=== PATIENT | male | born 1960 | race Two or more races ===

== ENCOUNTER → 2017-05-21 | Outpatient (CLI) | payer MEDICAID ==
[2017-05-21 09:30] LABS: CH 30.5; CHCM 34.7; HCT 45.5 % (39.0-53.0); HDW 2.61; HGB 15.9 gm/dL (13.0-17.5); MCH 30.8 pg (25.0-35.0); MCHC 34.9 g/dL (31.0-37.0); MCV 88.3 fL (80.0-100.0); Mean Platelet Volume 8.1; RBC 5.15 m/uL (4.30-5.90); RDW 13.2 % (11.5-15.5); WBC 6.6 k/uL (3.8-10.6)
[2017-05-21 10:22] LABS: ALT 46 U/L (21-72); AST 23 U/L (17-59); Alkaline Phosphatase 68 U/L (38-126); Anion Gap 12 mmol/L; Blood Urea Nitrogen 14 mg/dL (9-20); Calcium 9.7 mg/dL (8.4-10.2); Carbon Dioxide 23 mmol/L (22-30); Chloride 104 mmol/L (98-107); Cholesterol 214 mg/dL (<200); Glucose 108 mg/dL (74-99); HDL Cholesterol 47 mg/dL (40-60); Non-African American GFR(MDRD) >60 (>60 ml/min/1.73 sqM); Potassium 4.2 mmol/L (3.5-5.1); Sodium 139 mmol/L (137-145); Total Bilirubin 0.8 mg/dL (0.2-1.3); Total Protein 7.4 g/dL (6.3-8.2); Triglycerides 154 mg/dL (<150)
[2017-05-21 10:52] LABS: Prostate Specific Antigen 0.66 ng/mL (0.00-4.00)
== END | disposition home or self-care (01) ==
LOC: LABWHC1 08:43
PROVIDERS: ATTEND Family Medicine
DX: I10 Essential (primary) hypertension (principal)
CPT/HCPCS: 36415; 80053; 80061; 84153; 85027

== ENCOUNTER 2017-12-20 10:09 | Emergency (ER) | payer MEDICAID, OTHER ==
[2017-12-20 10:15] VITALS: BP 160/82; PULSE 81; RESP 16; TEMP 97.5
--- NOTE | 2017-12-20 10:34 | ED ---
General Adult HPI - General Chief complaint: Extremity Injury, Upper Stated complaint: [facility]HS-Fall, Shoulder Pain Time Seen by Provider: 12/20/17 10:24 Source: patient, RN notes reviewed Mode of arrival: ambulatory Limitations: no limitations - History of Present Illness Initial comments: 57-year-old male past medical history hypertension presents status post fall. Chief complaint of right elbow and right shoulder pain. 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 Pain in the right shoulder is more significant than his elbow pain. He has been moving the arm without much difficulty. States the pain is worse when the arm is hanging at his side. Denies any numbness or tingling. No head or neck trauma. No other injuries reported. - Related Data Home Medications Medication Instructions Recorded Confirmed Multivit-Min/FA/Lycopen/Lutein 1 tab PO DAILY 12/20/17 12/20/17 [Centrum Silver Tablet] Triamterene/Hydrochlorothiazid 1 tab PO QAM 12/20/17 12/20/17 [Triamterene-Hctz 37.5-25 mg Tb] amLODIPine [Norvasc] 5 mg PO DAILY 12/20/17 12/20/17 Previous Rx's Medication Instructions Recorded HYDROcodone/APAP 5-325MG [Sunol 1 tab PO Q6HR PRN #12 tab 12/20/17 5-325] Allergies Allergy/AdvReac Type Severity Reaction Status Date / Time NSAIDS (Non-Steroidal Allergy Unknown Verified 12/20/17 11:06 Anti-Inflamma Review of Systems ROS Statement: Those systems with pertinent positive or pertinent negative responses have been documented in the HPI. ROS Other: All systems not noted in ROS Statement are negative. Past Medical History Past Medical History: Hypertension History of Any Multi-Drug Resistant Organisms: None Reported Past Surgical History: No Surgical Hx Reported Past Psychological History: No Psychological Hx Reported Smoking Status: Current every day smoker Past Alcohol Use History: None Reported Past Drug Use History: None Reported General Exam Limitations: no limitations General appearance: alert, in no apparent distress Head exam: Present: atraumatic, normocephalic Eye exam: Present: normal appearance Neck exam: Present: normal inspection, full ROM Respiratory exam: Present: normal lung sounds bilaterally. Absent: respiratory distress Cardiovascular Exam: Present: regular rate, normal rhythm GI/Abdominal exam: Present: soft. Absent: distended, tenderness Extremities exam: Present: other (Right upper extremity: Neurovascularly intact , good research associate molecular biology strength, some tenderness on the proximal ulna, no deformity noted, no ecchymosis, there is pain with range of motion of the right shoulder, no deformity.) Neurological exam: Present: alert, oriented X3. Absent: motor sensory deficit Psychiatric exam: Present: normal affect, normal mood Skin exam: Present: warm, dry, intact. Absent: cyanosis, diaphoretic Course Vital Signs 12/20/17 10:10 Temperature 97.5 F L Pulse Rate 81 Respiratory 16 Rate Blood Pressure 160/82 O2 Sat by Pulse 99 Oximetry Medical Decision Making - Medical Decision Making 57-year-old male with right shoulder and right elbow pain status post fall. No other injury identified on history or physical exam. X-rays showed negative for any acute bony abnormality. X-ray of the elbow is negative for fracture dislocation, there is some chronic changes elbow which is reviewed with the patient. He is given a sling for comfort and prescribed pain medication. He will follow-up with primary care physician. Disposition Clinical Impression: Elbow contusion, Shoulder strain Disposition: HOME SELF-CARE Condition: Good Instructions: Elbow Sprain (ED), Contusion in Adults (ED) Prescriptions: HYDROcodone/APAP 5-325MG [Sunol 5-325] 1 tab PO Q6HR PRN #12 tab PRN Reason: Pain Referrals: America Tsai MD [Primary Care Provider] - 1-2 days Time of Disposition: 11:16
--- NOTE | 2017-12-20 11:07 | XR ---
EXAMINATION TYPE: XR elbow complete RT DATE OF EXAM: 12/20/2017 CLINICAL HISTORY: Fall injury with pain. TECHNIQUE: Frontal, lateral and oblique images of the right elbow are obtained. COMPARISON: None FINDINGS: There is no acute fracture/dislocation evident in the right elbow. No abnormal fat pad si gns are seen. There is prominent spur from posterior likely nonacute distal triceps tendon attachment . There is well corticated ossific fragmentation from the lateral epicondyle distal humerus at extens or tendon insertion, possibly calcific tendinitis or product of old trauma. Mild spurring ulnohumeral articulation is seen. Tiny spur lateral aspect radial head is noted on oblique image. Overlying soft tissue is unremarkable. IMPRESSION: There is no acute fracture or dislocation in the right elbow.
--- NOTE | 2017-12-20 11:08 | XR ---
EXAMINATION TYPE: XR shoulder complete RT DATE OF EXAM: 12/20/2017 CLINICAL HISTORY: Fall injury with pain. TECHNIQUE: Three views of the right shoulder are obtained. COMPARISON: None. FINDINGS: There is no acute fracture/dislocation evident in the right shoulder. There is moderate sp urring at acromioclavicular joint. Distal acromion morphology is unremarkable. Glenohumeral joint is maintained. The visualized ribs are intact and unremarkable. IMPRESSION: There is no acute fracture or dislocation in the right shoulder.
[2017-12-20] MEDS ORDERED: IBUPROFEN 800 MG TAB PO STA (11:19)
== END 2017-12-20 11:18 | disposition home or self-care (01) ==
LOC: EC 10:09
DX: S46.911A Strain of unspecified muscle, fascia and tendon at shoulder and upper arm level, right arm, initial encounter (principal); S50.01XA Contusion of right elbow, initial encounter; I10 Essential (primary) hypertension; F17.200 Nicotine dependence, unspecified, uncomplicated; Z79.899 Other long term (current) drug therapy; Z88.6 Allergy status to analgesic agent; W01.0XXA Fall on same level from slipping, tripping and stumbling without subsequent striking against object, initial encounter; Y92.89 Other specified places as the place of occurrence of the external cause; Y99.0 Civilian activity done for income or pay
CPT/HCPCS: 99283

== ENCOUNTER → 2019-06-18 | Outpatient (CLI) | payer MEDICAID ==
[2019-06-18 19:29] LABS: African American GFR (CKD) 96.4 (60.0-200.0); Albumin 4.7 g/dL (3.80-4.90); Albumin/Globulin Ratio 2.24 (1.60-3.17); Anion Gap 10.8 mmol/L (4.00-12.00); Calcium 9.1 mg/dL (8.7-10.3); Carbon Dioxide 24.2 mmol/L (21.6-31.8); Globulin 2.1 g/dL (1.6-3.3); LDL Cholesterol,Calculated 125.6 mg/dL (0.0-131.0); Potassium 3.9 mmol/L (3.5-5.5); Total Bilirubin 0.5 mg/dL (0.3-1.2); Total Protein 6.8 g/dL (6.2-8.2); VLDL Calculation 31.4 mg/dL (5.00-40.00)
== END | disposition home or self-care (01) ==
LOC: LABWHC1 12:37
PROVIDERS: ATTEND Family Medicine
DX: Z00.00 Encounter for general adult medical examination without abnormal findings (principal); I10 Essential (primary) hypertension
CPT/HCPCS: 36415; 80053; 80061; 84153

== ENCOUNTER → 2020-09-03 | Outpatient (CLI) | payer MEDICAID ==
[2020-09-03 08:33] LABS: HCT 44.9 % (39.0-53.0); HGB 15.2 gm/dL (13.0-17.5); MCH 29.4 pg (25.0-35.0); MCHC 33.8 g/dL (31.0-37.0); Mean Platelet Volume 8.2; Platelet Count 194 k/uL (150-450); RBC 5.16 m/uL (4.30-5.90); WBC 5.9 k/uL (3.8-10.6)
[2020-09-03 11:20] LABS: African American GFR (CKD) 85.3 (60.0-200.0); Albumin 4.5 g/dL (3.80-4.90); Albumin/Globulin Ratio 1.88 (1.60-3.17); Anion Gap 9.6 mmol/L (4.00-12.00); BUN/Creat Ratio 13.64 Ratio (12.00-20.00); Calcium 9.3 mg/dL (8.7-10.3); Carbon Dioxide 23.4 mmol/L (21.6-31.8); Chol/HDL Ratio 4.76; Globulin 2.4 g/dL (1.6-3.3); LDL Cholesterol,Calculated 136.8 mg/dL (0.0-131.0); Non-African American GFR(CKD) 73.6 (60.0-200.0); Potassium 4.1 mmol/L (3.5-5.5); Total Bilirubin 0.5 mg/dL (0.2-1.2); Total Protein 6.9 g/dL (6.2-8.2); VLDL Calculation 32.2 mg/dL (5.00-40.00)
[2020-09-03 11:28] LABS: Prostate Specific Antigen 0.4 ng/mL (0.0-3.5)
== END | disposition home or self-care (01) ==
LOC: LABWHC1 07:42
PROVIDERS: ATTEND Family Medicine
DX: Z00.00 Encounter for general adult medical examination without abnormal findings (principal); I10 Essential (primary) hypertension
CPT/HCPCS: 36415; 80053; 80061; 84153; 85027

== ENCOUNTER → 2021-06-23 | Outpatient (CLI) | payer MEDICAID ==
[2021-06-23 15:40] LABS: Basophils # (A) 0.07 X 10*3/uL (0.00-0.10); Basophils % (A) 1.3 %; Eosinophils # (A) 0.15 X 10*3/uL (0.04-0.35); Eosinophils % (A) 2.8 %; HCT 43.8 % (39.6-50.0); HGB 14.6 g/dL (13.0-17.0); Lymphocytes # (A) 1.87 X 10*3/uL (0.90-5.00); MCH 28.3 pg (27.0-32.0); MCHC 33.3 g/dL (32.0-37.0); MCV 84.9 fL (80.0-97.0); Mean Platelet Volume 10.8 fL (9.5-12.2); Monocytes # (A) 0.58 X 10*3/uL (0.20-1.00); Monocytes % (A) 10.9 %; Neutrophils # (A) 2.66 X 10*3/uL (1.80-7.70); Neutrophils % (A) 49.8 %; Platelet Count 227 X 10*3/uL (140-440); RBC 5.16 X 10*6/uL (4.40-5.60); RDW 13.2 % (11.5-14.5); WBC 5.34 X 10*3/uL (4.50-10.00)
[2021-06-24 02:32] LABS: African American GFR (CKD) 84.7 (60.0-200.0); Albumin 4.7 g/dL (3.80-4.90); Albumin/Globulin Ratio 1.81 (1.60-3.17); Anion Gap 14.2 mmol/L (4.00-12.00); BUN/Creat Ratio 13.64 Ratio (12.00-20.00); Calcium 9.2 mg/dL (8.7-10.3); Carbon Dioxide 21.8 mmol/L (21.6-31.8); Chol/HDL Ratio 5.6; Globulin 2.6 g/dL (1.6-3.3); LDL Cholesterol,Calculated 139.8 mg/dL (0.0-131.0); Non-African American GFR(CKD) 73.1 (60.0-200.0); Potassium 3.9 mmol/L (3.5-5.5); Total Bilirubin 0.7 mg/dL (0.3-1.2); Total Protein 7.3 g/dL (6.2-8.2); VLDL Calculation 44.2 mg/dL (5.00-40.00)
[2021-06-24 02:38] LABS: PSA Annual Screen 0.5 ng/mL (0.0-4.0)
== END | disposition home or self-care (01) ==
LOC: LABWHC1 09:31
PROVIDERS: ATTEND Family Medicine
DX: Z00.00 Encounter for general adult medical examination without abnormal findings (principal)
CPT/HCPCS: 80061; 80053; 84443; 85025; 36415; G0103

== ENCOUNTER → 2021-12-22 | Outpatient (CLI) | payer MEDICAID ==
[2021-12-22 11:37] LABS: ALT 21 U/L (10-49); AST 16 U/L (14-35); African American GFR (CKD) 81.1 (60.0-200.0); Albumin 4.4 g/dL (3.8-4.9); Albumin/Globulin Ratio 1.55 (1.60-3.17); Alkaline Phosphatase 68 U/L (41-126); BUN/Creat Ratio 11.93 Ratio (12.00-20.00); Blood Urea Nitrogen 13.6 mg/dL (9.0-27.0); Calcium 9.4 mg/dL (8.7-10.3); Carbon Dioxide 22.3 mmol/L (20.0-27.5); Chloride 100 mmol/L (96-109); Chol/HDL Ratio 5.56 Ratio; Globulin 2.9 g/dL (1.6-3.3); Glucose 114 mg/dL (70-110); LDL Cholesterol,Calculated 157.9 mg/dL (0.0-131.0); Potassium 3.9 mmol/L (3.5-5.5); Sodium 136 mmol/L (135-145); Total Protein 7.3 g/dL (6.2-8.2)
== END | disposition home or self-care (01) ==
LOC: LABWHC1 07:10
PROVIDERS: ATTEND Family Medicine
DX: I10 Essential (primary) hypertension (principal)
CPT/HCPCS: 36415; 80053; 80061; 83036

== ENCOUNTER → 2022-08-04 | Outpatient (CLI) | payer MEDICAID ==
--- NOTE | 2022-08-04 19:16 | CT ---
EXAMINATION TYPE: CT heart w calcium score DATE OF EXAM: 08/04/2022 COMPARISON: HISTORY: Screening for cardiovascular disorder. 213.9 CT DLP: 123.40 mGycm Automated exposure control for dose reduction was used. CT CALCIUM SCORING Coronary calcium is a marker for plaque (fatty deposits) in a blood vessel or atherosclerosis (harden ing of the arteries). The presence and amount of calcium detected in a coronary artery by the CT sca n, indicates the presence and amount of atherosclerotic plaque. These calcium deposits appear years before the development of heart disease symptoms such as chest pain and shortness of breath. A calcium score is computed for each of the coronary arteries based upon the volume and density of th e calcium deposits. This can be referred to as your calcified plaque burden. It does not correspond directly to the percentage of narrowing in the artery but does correlate with the severity of the un derlying coronary atherosclerosis. PROCEDURE TECHNIQUE - Prospective Gating was used. Slice thickness: 3mm. Density threshold (HU): 130, Pixel threshold: 3, Algorithm: discrete. RESULTS Region: LM Calcium Score (Agatston): 266.31 Volume (mm3): 204.29 Mass (g): 68.1 Region: RCA Calcium Score (Agatston): 0 Volume (mm3): 0 Mass (g): 0 Region: LAD Calcium Score (Agatston): 0 Volume (mm3): 0 Mass (g): 0 Region: CX Calcium Score (Agatston): 0 Volume (mm3): 0 Mass (g): 0 Region: PDA Calcium Score (Agatston): 0 Volume (mm3): 0 Mass (g): 0 Total: Calcium Score (Agatston): 266.31 Volume (mm3): 204.29 Mass (g): 68.1 TOTAL CALCIUM SCORE: 266.31 IMPRESSION: Calcium Score: 0 Implication: No identifiable plaque. Risk of Coronary Artery Disease: very Low generally less than 5% CALCIUM SCORE IMPLICATION RISK OF C ORONARY ARTERY DISEASE 0 No identifiable plaque Very low, generally less than 5% 1-10 Minimal identifiable plaque Very unlikely, less than 10% 11-100 Definite, at least mild atherosclerotic plaque Mild or m inimal coronary narrowings likely 101-400 Definite, at least moderate atherosclerotic plaque Mild coronary ar arnulfo disease highly likely, significant narrowing possible 401 or Higher Extensive atherosclerotic plaque High lik elihood of at least one significant coronary narrowing
== END | disposition home or self-care (01) ==
LOC: RADCTMAIN 14:58
PROVIDERS: ATTEND Family Medicine
DX: Z13.6 Encounter for screening for cardiovascular disorders (principal); I25.10 Atherosclerotic heart disease of native coronary artery without angina pectoris
CPT/HCPCS: 75571

== ENCOUNTER → 2022-08-24 | Outpatient (CLI) | payer MEDICAID ==
--- NOTE | 2022-08-24 18:59 | CT ---
EXAMINATION TYPE: CT angio chest DATE OF EXAM: 08/24/2022 COMPARISON: Calcium score CT August 04, 2022 HISTORY: h/o calcium score in LM. Abnormal CT. CT DLP: 922 mGycm. Automated Exposure Control for Dose Reduction was Utilized. CONTRAST: CTA scan of the thorax is performed without and with IV Contrast, patient injected with 100 mL of Iso randy 370, aneurysm protocol. 3D reconstructed images are created on an independent workstation and rev iewed. FINDINGS: LUNGS: Mild to moderate underlying emphysematous changes are present. There is mild to moderate linea r atelectasis or scarring in the periphery of the lower lungs bilaterally. No pleural effusion or pne umothorax seen. No focal consolidation. No concerning nodules or masses MEDIASTINUM: There is satisfactory enhancement of the Central pulmonary arteries. No area of nonenhan cing contrast to suggest intramural hematoma. Normal 3 vessel origins from the aortic arch without pl aque or stenosis. No linear hypodensity to suggest dissection. No Thoracic aortic aneurysm. There are no greater than 1 cm hilar or mediastinal lymph nodes. No cardiomegaly or pericardial effusion is seen. Prominent calcification in the small length left main extends into the proximal LAD correlates with recent calcium scoring CT but this is putting all calcium in the left main where more than half calcified plaque is in the proximal LAD. OTHER: Asymmetric nodular fullness to the left adrenal gland favors benign etiology. There is partial ly exophytic 3.1 cm thin-walled cyst posteriorly upper pole right kidney. IMPRESSION: Mild to moderate underlying emphysematous change greatest upper lungs with mild to modera te peripheral linear scarring and atelectasis in the lower lungs. No suspicious acute pulmonary proce ss. No thoracic aortic aneurysm or dissection noted.
== END | disposition home or self-care (01) ==
LOC: RADCTMAIN 15:30
PROVIDERS: ATTEND Family Medicine
DX: J43.9 Emphysema, unspecified (principal); J98.11 Atelectasis; J98.4 Other disorders of lung; E78.00 Pure hypercholesterolemia, unspecified
CPT/HCPCS: 71275; Q9967

== ENCOUNTER → 2022-09-28 | Outpatient (CLI) | payer MEDICAID ==
--- NOTE | 2022-10-11 07:28 | US ---
EXAMINATION TYPE: US arterial LE multi level DATE OF EXAM: 09/28/2022 8:25 AM CLINICAL HISTORY: I25.10 pad. History of hypertension and hyperlipidemia. Doppler Waveforms: Right: Monophasic in dorsalis pedis. Triphasic throughout remainder. Left: Monophasic in dorsalis pedis. Triphasic throughout remainder. Ankle-Brachial Indices: Right: 0.83 Left: 0.82 Toe Brachial Indices: Right: 0.64 Left: N/C IMPRESSION: Normal ANGELA values. Loss of phasicity bilateral dorsalis pedis, significant stenosis at t his level cannot be excluded. Further workup and follow-up should be considered.
== END | disposition home or self-care (01) ==
LOC: RADUSWWP 07:01
PROVIDERS: ATTEND Internal Medicine Interventional Cardiology
DX: I25.10 Atherosclerotic heart disease of native coronary artery without angina pectoris (principal)
CPT/HCPCS: 93923

== ENCOUNTER → 2022-10-17 | Outpatient (CLI) | payer MEDICAID ==
--- NOTE | 2022-10-17 16:05 | CA ---
Transthoracic Echo Report Name: Kit Kirkland Age: 62 Gender: M : 1960 Exam Date: 10/17/2022 14:03 Exam Location: [facility] Ht (in): 71 Wt (lb): 220 Ordering Physician: Mickey Corral MD ([id number]) Attending/Referring Phys: Bakery Assistant Sharda Redmond RDCS Procedure CPT: Indications: 125.10 ASHD Cardiac Hx: Technical Quality: Fair Contrast 1: Total Dose (mL): Contrast 2: Total Dose (mL): MEASUREMENTS (Male / Female) Normal Values 2D ECHO LV Diastolic Diameter PLAX 4.6 cm 4.2 - 5.9 / 3.9 - 5.3 cm LV Systolic Diameter PLAX 2.8 cm IVS Diastolic Thickness 1.5 cm 0.6 - 1.0 / 0.6 - 0.9 cm LVPW Diastolic Thickness 1.3 cm 0.6 - 1.0 / 0.6 - 0.9 cm LV Relative Wall Thickness 0.6 RV Internal Dim ED PLAX 2.7 cm LA Volume 40.4 cm??? 18 - 58 / 22 - 52 cm??? M-MODE Aortic Root Diameter MM 3.0 cm LA Systolic Diameter MM 4.1 cm LA Ao Ratio MM 1.4 AV Cusp Separation MM 1.9 cm DOPPLER AV Peak Velocity 137.5 cm/s AV Peak Gradient 7.6 mmHg AV Mean Velocity 101.4 cm/s AV Mean Gradient 4.4 mmHg AV Velocity Time Integral 26.2 cm LVOT Peak Velocity 105.3 cm/s LVOT Peak Gradient 4.4 mmHg LVOT Velocity Time Integral 20.1 cm MV Area PHT 3.0 cm??? Mitral E Point Velocity 72.1 cm/s Mitral A Point Velocity 59.5 cm/s Mitral E to A Ratio 1.2 MV Deceleration Time 253.2 ms MV E' Velocity 11.3 cm/s Mitral E to MV E' Ratio 6.4 TR Peak Velocity 189.6 cm/s TR Peak Gradient 14.4 mmHg Right Ventricular Systolic Press 19.4 mmHg FINDINGS Left Ventricle Moderately increased left ventricular wall thickness. Normal left ventricular systolic function with no obvious regional wall motion abnormalities. Left ventricular ejection fraction is estimated at 55-60 %. Normal left ventricular diastolic filling pattern. Right Ventricle Normal right ventricular size and function. Right ventricular systolic pressure within normal limits. Right Atrium Normal right atrial size. Left Atrium Normal left atrial size. Mitral Valve Structurally normal mitral valve. No evidence for mitral valve prolapse. No mitral stenosis. Mild mitral regurgitation. Aortic Valve Trileaflet aortic valve. No aortic valve stenosis or regurgitation. Tricuspid Valve Structurally normal tricuspid valve. Mild tricuspid regurgitation. Pulmonic Valve Trace pulmonic regurgitation. Pericardium No pericardial effusion. Aorta Normal size aortic root and proximal ascending aorta. CONCLUSIONS LVH with preserved systolic function Previewed by: Dr. Carlos Bolivar MD (Electronically Signed) Final Date: 17 October 2022 16:04
== END | disposition home or self-care (01) ==
LOC: RADECHMAIN 13:59
PROVIDERS: ATTEND Internal Medicine Interventional Cardiology
DX: I25.10 Atherosclerotic heart disease of native coronary artery without angina pectoris (principal)
CPT/HCPCS: 93306

== ENCOUNTER 2022-10-27 06:11 | Day surgery (SDC) | payer MEDICAID ==
[2022-10-27] MEDS: SODIUM CHLORIDE 0.9% 1,000 ML in EMPTY BAG 1 BAG IV SCH ×2 (06:07→06:24)
[~2022-10-27 06:11] MED LIST: ALPRAZolam 0.25 MG TAB PO PRN; ALPRAZolam 0.5 MG TAB PO PRN; ASPIRIN 325 MG TAB PO STA; ATORVASTATIN 80 MG TAB PO STA; NITROGLYCERIN SL TABS 0.4 MG TAB SUBLINGUAL PRN
[2022-10-27 07:24] LABS: Basophils # (A) 0.1 k/uL (0-0.2); Basophils % (A) 1 %; Eosinophils # (A) 0.2 k/uL (0-0.7); Eosinophils % (A) 4 %; HCT 43.2 % (39.0-53.0); HGB 15.3 gm/dL (13.0-17.5); Lymphocytes # (A) 1.3 k/uL (1.0-4.8); Lymphocytes % (A) 23 %; MCH 29.6 pg (25.0-35.0); MCHC 35.5 g/dL (31.0-37.0); MCV 83.2 fL (80.0-100.0); Mean Platelet Volume 8.8; Monocytes # (A) 0.4 k/uL (0-1.0); Monocytes % (A) 7 %; Neutrophils # (A) 3.6 k/uL (1.3-7.7); Neutrophils % (A) 63 %; Platelet Count 198 k/uL (150-450); RBC 5.19 m/uL (4.30-5.90); RDW 12.9 % (11.5-15.5); WBC 5.8 k/uL (3.8-10.6)
[2022-10-27] MEDS ORDERED: VERAPAMIL 2.5 MG/ML 2 ML AMP ONE (07:28)
[2022-10-27 07:30] VITALS: RESP 16; TEMP 98.4
[2022-10-27] MEDS ORDERED: HEPARIN SODIUM 1,000 UN/ML (10ML VL) ONE (07:38)
[2022-10-27] MEDS ORDERED: LIDOCAINE 1% INJ 10MG/ML (5 ML VIAL-PF) SQ ONE (07:52)
[2022-10-27] MEDS: fentaNYL (PF) 50 MCG/ML 2 ML AMP IV ONE ×2 (07:52→07:58)
[2022-10-27] MEDS ORDERED: MIDAZOLAM 2 MG/2 ML VIAL IV ONE ×2 (07:52→07:58)
[2022-10-27] MEDS ORDERED: VERAPAMIL SYRINGE (5 MG/10 ML) INTRAARTER ONE (07:55)
[2022-10-27] MEDS ORDERED: HEPARIN SODIUM 1,000 UN/ML (10ML VL) IV ONE (07:56)
[2022-10-27] MEDS ORDERED: IOPAMIDOL-370 125ML BTL INJ ONE (08:00)
[2022-10-27] MEDS ORDERED: fentaNYL (PF) 50 MCG/ML 2 ML AMP ONE (08:08)
[2022-10-27 08:11] LABS: Calcium 8.7 mg/dL (8.4-10.2); Potassium 3.9 mmol/L (3.5-5.1)
[2022-10-27] MEDS ORDERED: RX INFO: IV CONTRAST WAS GIVEN 1 EACH MISC MISCELLANE PRN (08:13)
[2022-10-27] MEDS ORDERED: SODIUM CHLORIDE 0.9% 1,000 ML IV SCH (08:15)
--- NOTE | 2022-10-27 08:17 | P.PCN ---
Date of Procedure: 10/27/22 Operative Findings: CARDIAC CATHETERIZATION PERFORMING PHYSICIAN: Mickey Corral MD, RPVI PROCEDURE PERFORMED: 1. Selective right and left coronary angiogram 2. Left heart catheterization INDICATION: The patient is a 62-year-old gentleman with a past medical history significant for hypertension and dyslipidemia and significant family history of CAD and had initially CT calcium score came in to be abnormal. Subsequently he underwent a coronary CTA and that revealed a plaque involving the left main appears to be in the range of 50%. He was brought today for further clarification and heart catheterization. COMPLICATION: None APPROACH: Right radial artery LEVEL OF SEDATION: Moderate with a sedation length of 10 minutes PROCEDURE DESCRIPTION: After obtaining an informed consent, the patient was brought to cardiac medical lab tech instructor. Local anesthesia was performed using lidocaine subcutaneously. The right radial artery was cannulated using Seldinger technique, the guidewire passed easily, following that we advanced a 5-[place] sheath dilator assembly, the wire and dilator were removed and sheath was flushed. Following that, 2 mg of verapamil along with 5000 unit heparin were given. Selective right and left coronary angiogram using a 6-[place] JR4 and JL 3.5 catheters. Following that we did left heart catheterization using 6-[place] pigtail catheter. The procedure was completed there was no complication. SELECTIVE CORONARY ANGIOGRAM: The right coronary artery: Large caliber vessel and a dominant vessel. The RCA has mild disease only. Distally bifurcates into PDA and PLV branches both appeared to be angiographically normal. Left main: The left main has disease appears to be in the range of 30%. Bifurcates into an LCx and LAD The left circumflex: Arch caliber vessel codominant vessel. The ostial LCx and ostial OM1 has a lesion appeared to be in the range of 50%. Otherwise the left circumflex system appears to be angiographically normal. The circumflex gives PDA branch. The left anterior descending artery: The ostial LAD has a lesion appeared to be in the range of 40-50%. The mid and distal LAD appears to have mild disease only. The LAD gives rises into a diagon al branch which has intermediate disease only. HEMODYNAMICS: The LVEDP was 8 mmHg was no significant gradient across aortic valve CONCLUSION: 1. Mild to moderate nonobstructive coronary artery disease 2. Normal left sided filling pressure POSTPROCEDURE MANAGEMENT: At this point I would advise aggressive cholesterol control and risk factors modification and no need for revascularization.
[2022-10-27 11:59] VITALS: BP 130/75; PULSE 65
[2022-10-28] MEDS ORDERED: HEPARIN SODIUM,PORCINE 2,500 UNIT in SODIUM CHLORIDE 0.9% 250 ML IRRIGATION PRN (07:00)
[2022-10-28] MEDS ORDERED: HEPARIN SODIUM,PORCINE 10,000 UNIT in SODIUM CHLORIDE 0.9% 1,000 ML IRRIGATION PRN (07:00)
== END 2022-10-27 12:10 | disposition home or self-care (01) ==
LOC: CATHCVL 06:11
PROVIDERS: ATTEND Internal Medicine Interventional Cardiology
DX: I25.10 Atherosclerotic heart disease of native coronary artery without angina pectoris (principal); I10 Essential (primary) hypertension; E78.5 Hyperlipidemia, unspecified; F17.210 Nicotine dependence, cigarettes, uncomplicated; Z82.49 Family history of ischemic heart disease and other diseases of the circulatory system; Z79.899 Other long term (current) drug therapy
CPT/HCPCS: 93458; 80048; 85025; C1769; C1894; J2250; J2001; J3010; J1644; Q9967

== ENCOUNTER → 2022-11-09 | Outpatient (CLI) | payer MEDICAID ==
--- NOTE | 2022-11-10 06:49 | US ---
EXAMINATION TYPE: US carotid duplex BILAT DATE OF EXAM: 11/09/2022 COMPARISON: NONE CLINICAL HISTORY: G54.1 CAROTID ARTERY SYNDROME. CAD. HTN - on meds. TECHNIQUE: Carotid duplex ultrasound examination. Indirect Doppler criteria was utilized. FINDINGS: EXAM MEASUREMENTS: RIGHT: Peak Systolic Velocity (PSV) cm/sec ----- Right CCA: 88.6 ----- Right ICA: 305.8 ----- Right ECA: 153.0 ICA/CCA ratio: 3.5 RIGHT: End Diastole cm/sec ----- Right CCA: 19.3 ----- Right ICA: 128.0 ----- Right ECA: 32.7 LEFT: Peak Systolic Velocity (PSV) cm/sec ----- Left CCA: 83.1 ----- Left ICA: 216.3 ----- Left ECA: 149.6 ICA/CCA ratio: 2.6 LEFT: End Diastole cm/sec ----- Left CCA: 24.8 ----- Left ICA: 77.3 ----- Left ECA: 31.7 VERTEBRALS (direction of flow): Right Vertebral: Antegrade Left Vertebral: Antegrade Rhythm: Normal COMPLAINT EVALUATION SUPERVISOR NOTES: Elevated velocities seen and significant stenosis. Plaque visualized bilaterally in bulb extending into ICA. IMPRESSION: 1. Greater than 70% stenosis at the origin of the right internal carotid artery. 2. 50-69% stenosis at the origin of the left internal carotid artery. Criteria for Assigning % of Stenosis / Diameter reduction (Estimation based on the indirect measurements of the internal carotid artery velocities (ICA PSV). 1. Normal (no stenosis)=ICA PSV < 125 cm/s: ratio < 2.0: ICA EDV<40 cm/s. 2. Less than 50% stenosis=ICA PSV < 125 cm/s: ratio < 2.0: ICA EDV<40 cm/s. 3. 50 to 69% stenosis=ICA PSV of 125 to 230 cm/s: ration 2.0 ? 4.0: ICA EDV 40-100 cm/s. 4. Greater than 70% stenosis to near occlusion= ICA PSV > 230 cm/s: ratio > 4.0: ICA EDV > 100 cm/s. 5. Near occlusion= ICA PSV velocities may be low or undetectable: variable ratio and ICA EDV. 6. Total occlusion=unable to detect flow.
== END | disposition home or self-care (01) ==
LOC: RADUSWWP 15:27
PROVIDERS: ATTEND Internal Medicine Interventional Cardiology
DX: I65.23 Occlusion and stenosis of bilateral carotid arteries (principal); I10 Essential (primary) hypertension; I25.10 Atherosclerotic heart disease of native coronary artery without angina pectoris
CPT/HCPCS: 93880

== ENCOUNTER → 2023-02-13 | Outpatient (CLI) | payer MEDICAID ==
[~2023-02-13] MED LIST changes: -ALPRAZolam 0.25 MG TAB PO PRN; -ALPRAZolam 0.5 MG TAB PO PRN; -ASPIRIN 325 MG TAB PO STA; -ATORVASTATIN 80 MG TAB PO STA; -NITROGLYCERIN SL TABS 0.4 MG TAB SUBLINGUAL PRN; +REGADENOSON 0.4 MG/5 ML SYRINGE IV PRN
--- NOTE | 2023-02-13 10:14 | CA ---
Lexiscan Nuclear Stress Test Report Name: Kit Kirkland Exam Date: 02/13/2023 09:38 Exam Location: [facility] Ht (in): 71 Wt (lb): 220 BSA: 2.20 Ordering Phys: Mickey Corral MD Referring Phys: MICKEY CORRAL,, Technologist: Nayan Walsh Age: 62 Gender: M : 1960 Procedure CPT: Indications: I25.10 ICD-10 Codes: Patient History: Medications: NORVASC, CRESTOR, METOPROLOL, TRIANTERENE Meds past 24 hrs: Pretest Chest Pain: STRESS TEST Lexiscan Protocol Exercise Duration (min:sec): 02:[address] Depressions (mm): Angina Score: Santizo Score: Resting HR (bpm): 64 Peak HR (bpm): 91 Resting BP (mmHg): 143 / 79 Peak BP (mmHg): 139 / 74 MPHR: 160 Target HR: 136 % MPHR: 57 METS: 1.0 Total Dose: Peak Dose: Atropine: Double Product: 16518 BP Response: Stress Termination: PROTOCOL COMPLETE Stress Symptoms: NO SYMPTOMS Stress Summary: ECG ANALYSIS Resting ECG: Stress ECG: CONCLUSIONS Baseline EKG revealed a normal sinus rhythm without significant ST-T changes. With Lexiscan administration the heart rate changed from 66-85 bpm and the blood pressure changed from 143/79-136/70. Patient was asymptomatic and EKG was unremarkable. By EKG criteria this is a unremarkable Lexiscan stress test. The nuclear scan results which are more pertinent will be reported with radiologist Dr. Feliciano Loja MD (Electronically Signed) Final Date: 13 February 2023 10:14
--- NOTE | 2023-02-13 11:04 | NM ---
EXAMINATION TYPE: NM stress lexiscan cardiolite DATE OF EXAM: 02/13/2023 COMPARISON: NONE HISTORY: Precordial chest pain TECHNIQUE: After the intravenous administration of 9.8 mCi Tc 99m Sestamibi - Cardiolite resting SPE CT images acquired 55 minutes post injection. The patient received 0.4mg Lexiscan, 25.6 mCi Tc 99m Sestamibi - Stress images obtained [address] injection FINDINGS: Review of stress and rest SPECT images demonstrates no distinct perfusion abnormality. Gated analysi s shows normal wall motion with an estimated left ventricular ejection fraction of 43 %. IMPRESSION: No scintigraphic evidence for reversible ischemia.
== END | disposition home or self-care (01) ==
LOC: RADNMMAIN 07:54
PROVIDERS: ATTEND Internal Medicine Interventional Cardiology
DX: I25.10 Atherosclerotic heart disease of native coronary artery without angina pectoris (principal)
CPT/HCPCS: 93017; 78452; A9500; J2785

== ENCOUNTER → 2023-03-21 | Outpatient (CLI) | payer MEDICAID ==
[2023-03-21 21:38] LABS: Basophils # (A) 0.07 X 10*3/uL (0.00-0.10); Basophils % (A) 1.1 %; Eosinophils # (A) 0.23 X 10*3/uL (0.04-0.35); Eosinophils % (A) 3.6 %; HGB 14.5 g/dL (13.0-17.0); Immature Grans, Automated 0.2 %; Lymphocytes # (A) 1.91 X 10*3/uL (0.90-5.00); Lymphocytes % (A) 30.1 %; MCH 28.3 pg (27.0-32.0); MCV 85.9 fL (80.0-97.0); Mean Platelet Volume 11.2 fL (9.5-12.2); Monocytes # (A) 0.55 X 10*3/uL (0.20-1.00); Monocytes % (A) 8.7 %; NRBC Per 100 WBC 0 /100 WBCS (0.0-0.0); Neutrophils # (A) 3.58 X 10*3/uL (1.80-7.70); Neutrophils % (A) 56.3 %; Platelet Count 222 X 10*3/uL (140-440); RBC 5.12 X 10*6/uL (4.40-5.60); RDW 13.3 % (11.5-14.5); WBC 6.35 X 10*3/uL (4.50-10.00)
== END | disposition home or self-care (01) ==
LOC: LABPAT 15:08
PROVIDERS: ATTEND Surgery
DX: Z01.818 Encounter for other preprocedural examination (principal); K40.90 Unilateral inguinal hernia, without obstruction or gangrene, not specified as recurrent
CPT/HCPCS: 85025; 93005

== ENCOUNTER 2023-03-30 06:21 | Day surgery (SDC) | payer MEDICAID ==
[2023-03-27 12:10] VITALS: BMI 30.7
[~2023-03-30 06:21] MED LIST changes: +ACETAMINOPHEN TAB 500 MG TAB PO PRN; +DEXAMETHASONE SOD PHOSPHATE 4 MG/ML 1 ML VIAL IV ONE; +HEPARIN SODIUM,PORCINE/PF 5,000 UNIT/0.5 ML SYRINGE SQ PRN; +LACTATED RINGERS 1,000 ML IV SCH; +MIDAZOLAM 2 MG/2 ML VIAL IV PRN; +ONDANSETRON 4 MG/2 ML VIAL IVP ONE; -REGADENOSON 0.4 MG/5 ML SYRINGE IV PRN; +SCOPOLAMINE 1 MG/72 HR PATCH TRANSDERM ONE
[2023-03-30] MEDS ORDERED: TAMSULOSIN 0.4 MG CAP.ER.24H PO STA (06:59)
[2023-03-30] MEDS ORDERED: HYDROmorphone 0.5 MG/0.5 ML SYRINGE IVP PRN (07:00)
--- NOTE | 2023-03-30 07:08 | P.GSHP ---
History of Present Illness H&P Date: 03/30/23 Chief Complaint: Bilateral inguinal hernia 63-year-old male seen last in the office in August. Patient has undergone his cardiac workup and cleared for surgery. Patient with complaints of bilateral groin swelling. Found to have bilateral inguinal hernias on exam. Patient also has a lipoma right lateral 5 is been there for 10 years or more. Uncomfortable at times. Patient also has complaints of a small cystic lesion in the right parasternal location. Past Medical History Past Medical History: Coronary Artery Disease (CAD), Hyperlipidemia, Hypertension, Osteoarthritis (OA) Additional Past Medical History / Comment(s): emphysema, recent testing shows blockage per pt. History of Any Multi-Drug Resistant Organisms: None Reported Past Surgical History: Heart Catheterization Additional Past Surgical History / Comment(s): colonoscopy Past Anesthesia/Blood Transfusion Reactions: No Reported Reaction Smoking Status: Former smoker - Past Family History Father Family Medical History: Cancer Additional Family Medical History / Comment(s): colon Medications and Allergies Home Medications Medication Instructions Recorded Confirmed Type Triamterene/Hydrochlorothiazid 1 tab PO QAM 12/20/17 03/30/23 History [Triamterene-Hctz 37.5-25 mg Tb] amLODIPine [Norvasc] 5 mg PO QAM 12/20/17 03/27/23 History Rosuvastatin Calcium [Crestor] 40 mg PO DAILY 10/26/22 03/27/23 History Metoprolol Succinate (ER) [Toprol 12.5 mg PO DAILY 10/27/22 03/27/23 History XL] Aspirin [Adult Low Dose Aspirin EC] 81 mg PO DAILY 03/27/23 03/27/23 History Allergies Allergy/AdvReac Type Severity Reaction Status Date / Time No Known Allergies Allergy Verified 03/30/23 06:37 Surgical - Exam Vital Signs Temp Pulse Resp BP Pulse Ox 97.9 F 72 16 148/88 97 03/30/23 06:44 03/30/23 06:44 03/30/23 06:44 03/30/23 06:44 03/30/23 06:44 Physical exam: General: Well-developed, well-nourished HEENT: Normocephalic, sclerae nonicteric Abdomen: Nontender, nondistended, bilateral inguinal hernia right greater than left Chest: 1 cm cystic lesion right parasternal border sebaceous cyst Extremities: No edema, 7 cm right lateral proximal thigh subcutaneous lipomatous mass Neuro: Alert and oriented Assessment and Plan (1) Bilateral inguinal hernia Narrative/Plan: Will proceed with laparoscopic [place] assisted repair of bilateral inguinal hernia with mesh, possible open, excision right thigh lipoma, excision chest wall cystic lesion. Risks of bleeding, infection, recurrence, bladder and bowel injury, numbness, nerve injury, conversion to an open procedure were discussed with the patient. The patient understands and wishes to proceed. Current Visit: Yes Status: Acute Code(s): K40.20 - BI INGUINAL HERNIA, W/O OBST OR GANGRENE, NOT SPCF RECUR SNOMED Code(s): 17937361 (2) Sebaceous cyst Current Visit: Yes Status: Acute Code(s): L72.3 - SEBACEOUS CYST SNOMED Code(s): 447549772 (3) Lipoma of right thigh Current Visit: Yes Status: Acute Code(s): D17.23 - BENIGN LIPOMATOUS NEOPLASM OF SKIN, SUBCU OF RIGHT LEG SNOMED Code(s): 373675968
[2023-03-30] MEDS ORDERED: TAMSULOSIN 0.4 MG CAP.ER.24H PO ONE (07:15)
[2023-03-30] MEDS ORDERED: fentaNYL (PF) 50 MCG/ML 2 ML AMP IVP ONE (07:21)
[2023-03-30 07:35] LABS: Albumin 4.4 g/dL (3.5-5.0); Calcium 8.8 mg/dL (8.4-10.2); Potassium 3.9 mmol/L (3.5-5.1); Total Bilirubin 0.7 mg/dL (0.2-1.3); Total Protein 7.4 g/dL (6.3-8.2)
[2023-03-30] MEDS ORDERED: NEOSTIGMINE 1 MG/ML 10 ML VIAL ONE (07:35)
[2023-03-30] MEDS ORDERED: LIDOCAINE 2% INJ 20 MG/ML (2 ML VIAL) ONE (07:35)
[2023-03-30] MEDS ORDERED: MIDAZOLAM 2 MG/2 ML VIAL ONE (07:35)
[2023-03-30] MEDS ORDERED: GLYCOPYRROLATE 0.2 MG/ML 2 ML VIAL ONE (07:35)
[2023-03-30] MEDS ORDERED: fentaNYL (PF) 50 MCG/ML 2 ML AMP ONE (07:35)
[2023-03-30] MEDS ORDERED: ROPIVACAINE 5 MG/ML 30 ML VIAL ONE (07:35)
[2023-03-30] MEDS ORDERED: KETOROLAC 15 MG/ML 1 ML VIAL ONE (07:35)
[2023-03-30] MEDS ORDERED: PROPOFOL 10 MG/ML 20 ML VIAL IV ONE (07:35)
[2023-03-30] MEDS ORDERED: HYDROmorphone (PF) 1 MG/ML ONE (07:35)
[2023-03-30] MEDS ORDERED: SODIUM CHLORIDE 0.9% (PF) 10 ML VIAL ONE (07:35)
[2023-03-30] MEDS ORDERED: ROCURONIUM 10 MG/ML (5 ML VIAL) IV ONE (07:35)
[2023-03-30] MEDS ORDERED: LIDOCAINE 4% LTA KIT (4 ML) TOPICAL ONE (07:35)
[2023-03-30] MEDS ORDERED: SUCCINYLCHOLINE CHLORIDE 200 MG/10 ML VIAL IV ONE (07:35)
[2023-03-30] MEDS ORDERED: BUPIVACAINE (PF) 0.25% 30 ML VIAL SQ ONE ×2 (08:31)
[2023-03-30] MEDS ORDERED: LACTATED RINGERS 1,000 ML IV ONE (08:49)
[2023-03-30] MEDS ORDERED: BACITRACIN OINT 1 EACH PACKET TOPICAL ONE (10:08)
--- NOTE | 2023-03-30 10:26 | P.ANPRN ---
Procedure Note - Anesthesia - Nerve Block Performed Bilateral Erector Spinae Single Time Out Performed: Yes ([id number]) Date of Procedure: 03/30/23 Procedure Start Time: : Procedure Stop Time: : Location of Patient: PreOp Indication: Acute Post-Operative Pain, Requested by Surgeon Specifically requested for management of pain by DrCharley: Mayur Durand Sedation Type: Sedate with meaningful contact maintained Preparation: Sterile Prep Position: Prone Catheter: None Needle Types: Pajunk Needle Gauge: 21 Ultrasound used to visualize needle placement: Yes Ultrasound used to observe medication spread: Yes Injectate: 0.5% Ropivacaine (see comment for volume) (15cc +10cc nacl pf each side) Blood Aspirated: No Pain Paresthesia on Injection Noted: No Resistance on Injection: Normal Image Stored and Saved: Yes Events: Uneventful and Well Tolerated
[2023-03-30 10:27] VITALS: TEMP 97.9
--- NOTE | 2023-03-30 10:34 | P.OP ---
Date of Procedure: 03/30/23 Procedure(s) Performed: PREOPERATIVE DIAGNOSIS: Bilateral inguinal hernia, right thigh lipoma, chest wall sebaceous cyst POSTOPERATIVE DIAGNOSIS: Same PROCEDURE: Laparoscopic da Blanca assisted repair bilateral inguinal hernia with mesh, excision right thigh lipoma, intermediate closure right thigh, excision chest wall sebaceous cyst SURGEON: Dr. Durand ANESTHESIA: General OPERATIVE PROCEDURE DETAILS: Patient was placed in the operating table in the supine position. The patient was placed under general anesthesia. The abdomen , chest, and right thigh were prepped and draped in usual sterile fashion. A small curvilinear supraumbilical incision was made. The fascia was retracted anteriorly with Midway forceps. The Veress needle was inserted. The saline drop test was normal. Insufflation took place to 15 mmHg. An 8 mm trocar was placed into the peritoneal cavity. 2 additional 8 mm trochars were placed in the right upper quadrant and left upper quadrant under visualization. The robotic arms were then brought in and docked into place. The fenestrated bipolar was used in the left arm and the laparoscopic zen was utilized in the right arm. A 30 8 mm scope was used in the up position. The peritoneal cavity was inspected. The patient had bilateral direct inguinal hernias with the right side being larger in size. The peritoneum was incised in a horizontal fashion cephalad to the internal inguinal ring bilaterally crossing the midline. Following that careful dissection of the preperitoneal space took place. This took place using both electrocautery, sharp dissection but primarily blunt dissection. Visualization of the pubic tubercle and Clifford's ligament took place bilaterally. The hernias were fully dissected. On the left-hand side a small femoral hernia was seen. Additionally on the left-hand side there were 2 mildly prominent iliac chain lymph nodes noticed. Once we had adequate space the [id number] Progrip mesh was advanced into the preperitoneal space and flattened out appropriately to cover all potential hernia sites one on each side. These 2 portions of mesh overlapped in the midline. The mesh was sutured to Clifford's ligament in a running fashion using a absorbable 30V lock suture starting from the right side across to the left. The peritoneal defect was then closed using 2 separate absorbable 20V lock sutures. The hernia sac on the right was incorporated into the peritoneal closure to help prevent future recurrence. The pneumoperitoneum was then evacuated. The skin of all 3 sites was closed using a 4-0 Monocryl stitch. The right thigh lipoma was then addressed. A longitudinal incision was made using a scalpel over the mass. The subcutaneous tissues superficially were divided using electrocautery. A prominent lipoma was then identified and easily removed using blunt dissection. This measured 6.5 x 6 x 5 7 m. This was sent to pathology. The subcutaneous tissues were closed using interrupted 3-0 Vicryl sutures. The skin was closed using a running 4-0 Monocryl stitch. Next the chest wall sebaceous cyst was addressed. This was excised sharply. This measured 1 cm in size. This incision was closed using interrupted 4-0 nylon sutures. Bacitracin and sterile dressings were applied at that location. Skin glue was then applied to the other incision sites. TYPE OF MESH USED: Progrip 15 cm 2 LOCATION OF MESH: Preperitoneal FIXATION: Absorbable 30V lock PREOPERATIVE DISCUSSION ON SMOKING CESSASTION: Yes PREOPERATIVE DISCUSSION ON MORBID OBESITY: Yes PREOPERATIVE DISCUSSION ON APPROPRIATE USE OF NARCOTIC USE: Yes PREOPERATIVE EDUCATION: Multi Modal, Smoking Cessation and Weight Loss with BMI over 35. DISPOSITION: Stable to recovery room
[2023-03-30] MEDS: TAMSULOSIN 0.4 MG CAP.ER.24H PO STA ×2 (11:25→11:30)
[2023-03-30 11:43] VITALS: RESP 16
[2023-03-30] MEDS ORDERED: ACETAMINOPHEN TAB 325 MG TAB PO SCH (12:00)
[2023-03-30 12:08] VITALS: BP 135/71; PULSE 64
[2023-03-30] MEDS ORDERED: IBUPROFEN 600 MG TAB PO SCH (13:30)
== END 2023-03-30 13:08 | disposition home or self-care (01) ==
LOC: OR 06:21
PROVIDERS: ATTEND Surgery
DX: K40.20 Bilateral inguinal hernia, without obstruction or gangrene, not specified as recurrent (principal); D17.23 Benign lipomatous neoplasm of skin and subcutaneous tissue of right leg; L72.0 Epidermal cyst; I25.10 Atherosclerotic heart disease of native coronary artery without angina pectoris; J43.9 Emphysema, unspecified; I10 Essential (primary) hypertension; E78.5 Hyperlipidemia, unspecified; M19.90 Unspecified osteoarthritis, unspecified site; Z98.890 Other specified postprocedural states; Z87.891 Personal history of nicotine dependence; Z80.0 Family history of malignant neoplasm of digestive organs; Z79.82 Long term (current) use of aspirin; Z79.899 Other long term (current) drug therapy; G89.18 Other acute postprocedural pain
CPT/HCPCS: 11401; 11406; 12032; 49650; S2900; 64999; 80053; 86850; 86900; 86901; 88304

== ENCOUNTER → 2023-04-12 | Outpatient (CLI) | payer MEDICAID ==
--- NOTE | 2023-04-12 14:19 | US ---
EXAMINATION TYPE: US carotid duplex BILAT DATE OF EXAM: 04/12/2023 COMPARISON: US CLINICAL INDICATION: Male, 63 years old with history of Z13.9 ENCOUNTER FOR SCREENING, UNSPECIFIED; F /U known stenosis from prior US, pt has no complaints at this time TECHNIQUE: Carotid duplex ultrasound examination. Indirect Doppler criteria was utilized. FINDINGS: EXAM MEASUREMENTS: RIGHT: Peak Systolic Velocity (PSV) cm/sec ----- Right CCA: 55.2 ----- Right ICA: 424.6 ----- Right ECA: 133.4 ICA/CCA ratio: 7.7 RIGHT: End Diastole cm/sec ----- Right CCA: 18.9 ----- Right ICA: 206.8 ----- Right ECA: 26.8 LEFT: Peak Systolic Velocity (PSV) cm/sec ----- Left CCA: 77.3 ----- Left ICA: 182.6 ----- Left ECA: 131.8 ICA/CCA ratio: 2.4 LEFT: End Diastole cm/sec ----- Left CCA: 25.8 ----- Left ICA: 66.4 ----- Left ECA: 23.6 VERTEBRALS (direction of flow): Right Vertebral: Antegrade Left Vertebral: Antegrade Rhythm: Normal ARTICULATION OFFICER NOTES: Significant stenosis bilaterally, more on right side with abnormal ratios, signifi cantly increased on right side when compared to prior IMPRESSION: 1. Right Greater than 70% stenosis/near occlusion at the carotid bifurcation. 2. Left 50-69% stenosis at the carotid bifurcation. Criteria for Assigning % of Stenosis / Diameter reduction (Estimation based on the indirect measurements of the internal carotid artery velocities (ICA PSV). 1. Normal (no stenosis)=ICA PSV < 125 cm/s: ratio < 2.0: ICA EDV<40 cm/s. 2. Less than 50% stenosis=ICA PSV < 125 cm/s: ratio < 2.0: ICA EDV<40 cm/s. 3. 50 to 69% stenosis=ICA PSV of 125 to 230 cm/s: ration 2.0 ? 4.0: ICA EDV 40-100 cm/s. 4. Greater than 70% stenosis to near occlusion= ICA PSV > 230 cm/s: ratio > 4.0: ICA EDV > 100 cm/s. 5. Near occlusion= ICA PSV velocities may be low or undetectable: variable ratio and ICA EDV. 6. Total occlusion=unable to detect flow.
== END | disposition home or self-care (01) ==
LOC: RADUSWWP 12:19
PROVIDERS: ATTEND Internal Medicine Interventional Cardiology
DX: Z13.6 Encounter for screening for cardiovascular disorders (principal); I65.23 Occlusion and stenosis of bilateral carotid arteries
CPT/HCPCS: 93880

== ENCOUNTER → 2023-04-25 | Outpatient (CLI) | payer MEDICAID ==
--- NOTE | 2023-04-25 11:20 | CT ---
EXAMINATION TYPE: CT angio neck DATE OF EXAM: 04/25/2023 COMPARISON: None HISTORY: Bilateral carotid stenosis. CT DLP: 418.2 mGycm CONTRAST: CTA cervical carotids is performed and with IV Contrast, patient injected with 65ml mL of Isovue 370. Contrast CTA of the cervical carotids was performed 3-D reconstruction imaging obtained at a separate workstation. Right carotid system: Mild plaque is seen of the right common carotid artery. There is moderate pred ominantly soft plaque also noted at the carotid bulb. Estimated diameter reduction is approximately 95%. ECA is patent. Right vertebral artery appears unremarkable. Left carotid system: Mild plaque is seen of the left common carotid artery. There is mild plaque als o noted at the carotid bulb. Estimated diameter reduction is 50-60%. ECA is patent. Left vertebral artery appears unremarkable. IMPRESSION: 1. Estimated diameter reduction Right ICA 95% 2. Estimated diameter reduction Left ICA 50-60% NASCET criteria was used in interpretation of this exam?
== END | disposition home or self-care (01) ==
LOC: RADCTMAIN 09:26
PROVIDERS: ATTEND Surgery
DX: I65.23 Occlusion and stenosis of bilateral carotid arteries (principal)
CPT/HCPCS: 70498; Q9967

== ENCOUNTER 2023-08-28 07:09 | Day surgery (SDC) | payer MEDICAID ==
[2023-08-21 11:25] VITALS: BMI 29.2
[~2023-08-28 07:09] MED LIST changes: -ACETAMINOPHEN TAB 500 MG TAB PO PRN; -DEXAMETHASONE SOD PHOSPHATE 4 MG/ML 1 ML VIAL IV ONE; -HEPARIN SODIUM,PORCINE/PF 5,000 UNIT/0.5 ML SYRINGE SQ PRN; +LIDOCAINE 1% (10MG/ML) FOR IV START INTRADERMA PRN; -MIDAZOLAM 2 MG/2 ML VIAL IV PRN; -ONDANSETRON 4 MG/2 ML VIAL IVP ONE; -SCOPOLAMINE 1 MG/72 HR PATCH TRANSDERM ONE
[2023-08-28 07:43] VITALS: RESP 16; TEMP 97.8
[2023-08-28] MEDS ORDERED: fentaNYL (PF) 50 MCG/ML 2 ML AMP ONE (08:04)
[2023-08-28] MEDS ORDERED: PROPOFOL 10 MG/ML 20 ML VIAL IV ONE (08:04)
[2023-08-28] MEDS ORDERED: LIDOCAINE 1% INJ 10MG/ML (20 ML MDV) ONE (08:04)
--- NOTE | 2023-08-28 08:12 | P.GSHP ---
History of Present Illness H&P Date: 08/28/23 Chief Complaint: Colon cancer screening 63-year-old male here for colonoscopy. Last colonoscopy 6 years ago. No bowel complaints. Family history of colon cancer in his father. Past Medical History Past Medical History: Hyperlipidemia, Hypertension, Osteoarthritis (OA) Additional Past Medical History / Comment(s): emphysema, recent testing shows blockage per pt. History of Any Multi-Drug Resistant Organisms: None Reported Past Surgical History: Hernia Repair Additional Past Surgical History / Comment(s): colonoscopy r ight carotid endarterctomy, Past Anesthesia/Blood Transfusion Reactions: No Reported Reaction Additional Past Anesthesia/Blood Transfusion Reaction / Comment(s): no blood transfusion Smoking Status: Former smoker - Past Family History Father Family Medical History: Cancer Additional Family Medical History / Comment(s): colon Medications and Allergies Home Medications Medication Instructions Recorded Confirmed Type Triamterene/Hydrochlorothiazid 1 tab PO QAM 12/20/17 08/28/23 History [Triamterene-Hctz 37.5-25 mg Tb] amLODIPine [Norvasc] 5 mg PO QAM 12/20/17 08/28/23 History Rosuvastatin Calcium [Crestor] 40 mg PO DAILY 10/26/22 08/28/23 History Metoprolol Succinate (ER) [Toprol 12.5 mg PO DAILY 10/27/22 08/28/23 History XL] Aspirin [Adult Low Dose Aspirin EC] 81 mg PO DAILY 03/27/23 08/28/23 History Clopidogrel [Plavix] 75 mg PO DAILY 08/21/23 08/28/23 History Allergies Allergy/AdvReac Type Severity Reaction Status Date / Time No Known Allergies Allergy Verified 08/28/23 07:31 Surgical - Exam Vital Signs Temp Pulse Resp BP Pulse Ox 97.8 F 81 16 146/79 97 08/28/23 07:35 08/28/23 07:35 08/28/23 07:35 08/28/23 07:35 08/28/23 07:35 Physical exam: General: Well-developed, well-nourished HEENT: Normocephalic, sclerae nonicteric Abdomen: Nontender, nondistended Extremities: No edema Neuro: Alert and oriented Assessment and Plan (1) Colon cancer screening Narrative/Plan: Will proceed with colonoscopy at this time Current Visit: Yes Status: Acute Code(s): Z12.11 - ENCOUNTER FOR SCREENING FOR MALIGNANT NEOPLASM OF COLON SNOMED Code(s): 523062043
--- NOTE | 2023-08-28 08:25 | P.PCN ---
Date of Procedure: 08/28/23 Procedure(s) Performed: PREOPERATIVE DIAGNOSIS: Colon cancer screening POSTOPERATIVE DIAGNOSIS: Normal exam PROCEDURE: Colonoscopy ANESTHESIA: MAC SURGEON: Mayur Durand M.D. SPECIMENS: None ENDOSCOPIC PROCEDURE: The patient was placed on the endoscopy table in the left decubitus position. The Olympus colonoscope was inserted into the anus and passed under direct visualization to the base of the cecum. The appendiceal orifice was visualized. From that point the scope was slowly withdrawn inspecti ng all surfaces carefully. There were no neoplastic inflammatory or polypoid lesions throughout the cecum, ascending, transverse, descending, sigmoid and rectum. There was no visible diverticulosis noted. Digital rectal examination was normal. The patient was taken to the recovery room in stable condition per anesthesia guidelines. RECOMMENDATIONS: Resume diet. Repeat colonoscopy 5 years because of the patient's family history of colon cancer.
[2023-08-28 09:02] VITALS: BP 123/78; PULSE 66
== END 2023-08-28 09:07 | disposition home or self-care (01) ==
LOC: ORWHC2ENDO 07:09
PROVIDERS: ATTEND Surgery
DX: Z12.11 Encounter for screening for malignant neoplasm of colon (principal); E78.5 Hyperlipidemia, unspecified; I10 Essential (primary) hypertension; M19.90 Unspecified osteoarthritis, unspecified site; Z80.0 Family history of malignant neoplasm of digestive organs; Z87.891 Personal history of nicotine dependence; Z98.890 Other specified postprocedural states; Z79.02 Long term (current) use of antithrombotics/antiplatelets; Z79.899 Other long term (current) drug therapy
CPT/HCPCS: J2001; J3010; J2704; G0105

== ENCOUNTER → 2024-07-15 | Outpatient (CLI) | payer MEDICAID ==
[2024-07-15 19:06] LABS: Basophils # (A) 0.07 X 10*3/uL (0.00-0.10); Basophils % (A) 1.1 %; Eosinophils # (A) 0.16 X 10*3/uL (0.04-0.35); Eosinophils % (A) 2.5 %; HCT 43.1 % (39.6-50.0); HGB 14.3 g/dL (13.0-17.0); Lymphocytes # (A) 1.85 X 10*3/uL (0.90-5.00); Lymphocytes % (A) 29.4 %; MCH 28.2 pg (27.0-32.0); MCHC 33.2 g/dL (32.0-37.0); Mean Platelet Volume 10.7 FL (9.5-12.2); Monocytes % (A) 7.9 %; NRBC Per 100 WBC 0 X 10*3/uL (0.00-0.01); Neutrophils # (A) 3.71 X 10*3/uL (1.80-7.70); Neutrophils % (A) 58.9 %; Platelet Count 196 X 10*3/uL (140-440); RBC 5.07 X 10*6/uL (4.40-5.60); RDW 13.6 % (11.5-14.5)
[2024-07-15 20:59] LABS: ALT 27 U/L (10-49); AST 20 U/L (14-35); Albumin 4.8 g/dL (3.8-4.9); Albumin/Globulin Ratio 2.09 Ratio (1.60-3.17); Alkaline Phosphatase 63 U/L (41-126); BUN/Creat Ratio 13.55 Ratio (12.00-20.00); Blood Urea Nitrogen 14.9 mg/dL (9.0-27.0); Calcium 9.4 mg/dL (8.7-10.3); Carbon Dioxide 25.2 mmol/L (21.6-31.8); Chloride 100 mmol/L (96-109); Chol/HDL Ratio 2.77 Ratio; Globulin 2.3 g/dL (1.6-3.3); Glucose 84 mg/dL (70-110); LDL Cholesterol,Calculated 55.8 mg/dL (0.0-131.0); Potassium 3.6 mmol/L (3.5-5.5); Prostate Specific Antigen 0.37 ng/mL (0.000-4.500); Sodium 139 mmol/L (135-145); Total Bilirubin 0.6 mg/dL (0.3-1.2); Total Protein 7.1 g/dL (6.2-8.2)
== END | disposition home or self-care (01) ==
LOC: LABWHC1 15:37
PROVIDERS: ATTEND Family Medicine
DX: I25.10 Atherosclerotic heart disease of native coronary artery without angina pectoris (principal); I26.90 Septic pulmonary embolism without acute cor pulmonale; R73.02 Impaired glucose tolerance (oral)
CPT/HCPCS: 36415; 80053; 80061; 83036; 84153; 84443; 85025

== ENCOUNTER → 2024-08-20 | Outpatient (CLI) | payer MEDICAID ==
--- NOTE | 2024-08-21 09:09 | CT ---
EXAMINATION TYPE: CT pelvis w con DATE OF EXAM: 08/20/2024 COMPARISON: None HISTORY: Left groin pain x [address] DLP: 764 mGycm Automated exposure control for dose reduction was used. CT of the pelvis including GI contrast was. CONTRAST: Performed with IV Contrast, patient injected with 100 ml mL of Isovue 370. FINDINGS: Sigmoid diverticulosis without diverticulitis. No inflammatory process seen within the [id number]. Small bowel within the imaged field is of normal caliber. No evidence for free fluid. Normal-appeari ng prostate gland. No evidence for hernia severe degenerative change lower lumbar spine. IMPRESSION: NO ACUTE PROCESS SEEN WITHIN THE PELVIS. [facility], , 08/21/2024 9:07 AM
== END | disposition home or self-care (01) ==
LOC: RADCTMAIN 16:02
PROVIDERS: ATTEND Surgery
DX: K57.32 Diverticulitis of large intestine without perforation or abscess without bleeding (principal)
CPT/HCPCS: 72193

== ENCOUNTER → 2025-01-14 | Outpatient (CLI) | payer MEDICAID ==
[2025-01-14 19:30] LABS: Microalbumin Creatinine Ratio <10 mg/g Cr (0-30)
== END | disposition home or self-care (01) ==
LOC: LABWHC1 15:37
PROVIDERS: ATTEND Family Medicine
DX: E11.9 Type 2 diabetes mellitus without complications (principal)
CPT/HCPCS: 36415; 82043; 82570; 83036